=== PATIENT | female | born 1960 | race African-American/Black ===

== ENCOUNTER 2019-01-30 09:56 | Emergency (ER) | payer BC ==
[2019-01-30] MEDS ORDERED: SODIUM CHLORIDE 0.9% 1,000 ML IV ONE (12:03)
[2019-01-30] MEDS ORDERED: PROCHLORPERAZINE 10 MG/2 ML VIAL IVP STA (12:03)
[2019-01-30] MEDS ORDERED: KETOROLAC 30 MG/ML VIAL IVP STA (12:04)
[2019-01-30] MEDS ORDERED: diphenhydrAMINE INJ 50 MG/ML VIAL IVP STA (12:04)
[2019-01-30] MEDS ORDERED: DEXAMETHASONE 10 MG/ML VIAL IVP STA (12:04)
--- NOTE | 2019-01-30 12:07 | ED Physician Documentation ---
PD HPI HEADACHE - Stated complaint Stated Complaint: PALAFOX - Chief complaint Chief Complaint: General - History obtained from History obtained from: Patient - History of Present Illness Timing - onset: Yesterday Timing - details: Still present Worst headache ever?: Worst headache ever? (no) Location: Global Quality: Aching Associated symptoms: Nausea. No: Fever, Vomiting Similar symptoms before: Diagnosis (history of migraines) - Additional information Additional information: The patient is a 58-year-old female with history of migraines, who presents with headache that started yesterday and persists today. It is global, with associated nausea and photosensitivity. She denies vomiting or fever. The headache is worse with sitting up, and she does report some muscle tension in her neck. She has a history of migraines, but this headache is slightly different in that it is global instead of right sided. She usually takes Maxalt for her headaches, but is out of her medication, and is visiting here from [place]. When she contacted her primary physician in [place], he advised her to get a CT scan of her head because it has been more than 2 years since her last similar headache. Her past medical history is also significant for lupus. Review of Systems Constitutional: denies: Fever Eyes: reports: Photophobia Ears: denies: Tinnitus/ringing Nose: denies: Congestion Throat: denies: Sore throat Cardiac: denies: Chest pain / pressure Respiratory: denies: Dyspnea, Cough GI: reports: Nausea. denies: Abdominal Pain, Vomiting : denies: Dysuria Skin: denies: Rash Musculoskeletal: denies: Neck pain, Back pain Neurologic: reports: Headache. denies: Focal weakness, Numbness PD PAST MEDICAL HISTORY - Past Medical History Neuro: Migraines Endocrine/Autoimmune: Systemic lupus erythematosus - Present Medications Home Medications: Ambulatory Orders Medication Instructions Recorded Confirmed Rizatriptan Benzoate [Maxalt] 10 mg PO BID PRN #10 tablet 01/30/19 - Allergies Allergies/Adverse Reactions: Allergies Allergy/AdvReac Type Severity Reaction Status Date / Time Iodinated Contrast- Oral and Allergy Unknown Verified 01/30/19 12:20 IV Dye - Social History Does the pt smoke?: No Additional Social History: Visiting here from [place]. PD ED PE NORMAL - Vitals Vital signs reviewed: Yes (Systolic hypertension.) - General General: Alert and oriented X 3, Well developed/nourished - HEENT HEENT: Atraumatic, PERRL, EOMI, Ears normal, Pharynx benign - Neck Neck: Supple, no meningeal sign, No adenopathy - Cardiac Cardiac: RRR, No murmur - Respiratory Respiratory: No respiratory distress, Clear bilaterally - Abdomen Abdomen: Soft, Non tender - Back Back: No CVA TTP - Derm Derm: No rash - Extremities Extremities: No edema, No calf tenderness / cord - Neuro Neuro: Alert and oriented X 3, No motor deficit, Normal speech Eye Opening: Spontaneous Motor: Obeys Commands Verbal: Oriented GCS Score: 15 Results - Vitals Vitals: Vital Signs - 24 hr 01/30/19 01/30/19 10:33 14:05 Temperature 36.7 C Heart Rate 69 78 Respiratory 16 16 Rate Blood Pressure 159/82 H 132/87 H O2 Saturation 96 98 Oxygen O2 Source Room air - Rads (name of study) head CT Radiology: Prelim report reviewed, EMP read contemporaneously, See rad report (No acute intracranial abnormality is identified.) PD MEDICAL DECISION MAKING - ED course Complexity details: reviewed results, re-evaluated patient, considered differential, d/w patient ED course: The patient's presentation is most consistent with recurrent episodic headache. Her presentation does not suggest meningitis, intracerebral hemorrhage, temporal arteritis, or pseudotumor cerebri. I discussed with her the expected course of illness, symptomatic treatment and outpatient follow-up, as well as potentially worrisome signs or symptoms that should prompt reevaluation in the emergency department. She is being discharged with prescription for Maxalt. Departure - Departure Disposition: 01 Home, Self Care Clinical Impression: Headache Qualifiers: Headache type: unspecified Headache chronicity pattern: acute headache Intractability: not intractable Qualified Code(s): R51 - Headache Instructions: ED Cephalgia Unspecified Prescriptions: Rizatriptan Benzoate [Maxalt] 10 mg PO BID PRN #10 tablet PRN Reason: Headache Comments: Drink plenty of fluids. You can use Maxalt as prescribed if needed for recurrent headache. Follow-up with your primary physician upon return to [place]. Return to the emergency department if you develop increasing headache, persistent vomiting, or otherwise worsening symptoms. Discharge Date/Time: 01/30/19 14:07
--- NOTE | 2019-01-30 13:01 | CT Report ---
Reason: headache Procedure Date: 01/30/2019 Accession Number: [id number] / [id number] Procedure: CT - HEAD WO CPT Code: FULL RESULT: EXAM: CT HEAD EXAM DATE: 01/30/2019 12:43 PM. CLINICAL HISTORY: Headache. COMPARISON: None. TECHNIQUE: Multiaxial CT images were obtained from the foramen magnum to the vertex. Reformats: Sagittal and coronal. IV contrast: None. In accordance with CT protocol optimization, one or more of the following dose reduction techniques were utilized for this exam: automated exposure control, adjustment of mA and/or KV based on patient size, or use of iterative reconstructive technique. FINDINGS: Parenchyma: No intraparenchymal hemorrhage. No evidence of mass, midline shift, or CT findings of infarction. Beltre-white differentiation is distinct. Extraaxial Spaces: Normal for age. No subdural or epidural collections identified. Ventricles: Normal in size and position. Sinuses and Orbits: Imaged paranasal sinuses, orbits, and mastoids show no significant abnormality. Bones: No evidence of fracture or calvarial defect. Other: None. IMPRESSION: 1. No acute intracranial abnormality is identified. [facility]
[2019-01-30 14:06] VITALS: BP 132/87
== END 2019-01-30 14:07 | disposition home or self-care (01) ==
LOC: ED 09:56
DX: R51 Headache (principal)
CPT/HCPCS: 70450; 96361; 96374; 99283; 99284; J1200